=== PATIENT | female | born 2005 | race Caucasian/White ===

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

== ENCOUNTER 2024-02-04 19:43 | Outpatient (CLI) | payer OTHER ==
[2024-02-04] MEDS: LACTATED RINGERS 1,000 ML IV ONE (20:28)
[2024-02-04] MEDS: LOPERAMIDE 2 MG CAP PO STA (20:39)
[2024-02-04 22:17] VITALS: BP 143/88; PULSE 110; RESP 17; TEMP 97
--- NOTE | 2024-02-25 15:46 | P.MSEPDOC ---
Presenting Problems - Arrival Data Date of Arrival on Unit: 02/04/24 Time of Arrival on Unit: 19:43 Mode of Transport: Wheelchair - Complaint OB-Reason for Admission/Chief Complaint: Other Comment: dehydration, diarrhea, nausea Medical History - Information : 2 Para: 0 Term: 0 : 0 Abortions: Spontaneous or Elective: 1 Number of Living Children: 0 - Gestational Age Gestational Age by JOSEPH (wks/days): 30 Weeks and 0 Days Review of Systems - Review of Systems Constitutional: No problems Breast: No problems ENT: No problems Cardiovascular: No problems Respiratory: No problems Gastrointestinal: No problems Genitourinary: No problems Musculoskeletal: No problems Neurological: No problems Skin: No problems Vital Signs - Temperature Temperature: 97.0 F Temperature Source: Temporal Artery Scan - Pulse Right Pulse Rate: 110 Pulse Assessment Method: Pulse Oximetry - Respirations Respiratory Rate: 17 Oxygen Delivery Method: Room Air O2 Sat by Pulse Oximetry: 97 - Blood Pressure Right Arm Blood Pressure: 143/88 Blood Pressure Mean: 106 Blood Pressure Source: Automatic Cuff Medical Screen Scoring - Assessment - Baby A Baseline FHR: 135 Heart Rate - NICHD Category: Category I (Normal) NST: Reactive Physician Notification - Physician Notified Physician Notified Date: 02/04/24 Physician Notified Time: 20:12 Physician: Darlene Rodríguez Order Received: Yes (1 Liter Bolus LR, Imodium 4mg once) Maternal Triage Index - Maternal Triage Index Presenting for scheduled procedure w/no complaint: No - Stat/Priority 1 Stat Priority 1: No - Urgent/Priority 2 Urgent Priority 2: No - Prompt/Priority 3 Prompt Priority 3: No - Non-Urgent/Priority 4 Non-Urgent Priority 4: Yes Criteria Met for Priority 4: Diarrhea, nausea, dehydration Disposition - Disposition OB Disposition: Discharge to home Discharge Date: 02/04/24 Discharge Time: 21:22 I agree with the RN Medical Screening Exam: Yes Physician's MSE Comment: I have neither seen nor examined the patient Case reviewed; plan agreed upon as documented in EMR&OBIX.: Yes Diagnosis: MATERNAL CARE FOR PROBLEM, UNSP, THIRD * DO NOT USE *
== END 2024-02-04 21:22 | disposition home or self-care (01) ==
LOC: FBPOP 19:43
PROVIDERS: ATTEND Obstetrics & Gynecology
DX: O99.283 Endocrine, nutritional and metabolic diseases complicating pregnancy, third trimester (principal); E86.0 Dehydration; Z3A.30 30 weeks gestation of pregnancy
CPT/HCPCS: 59025; 96360; G0463; 36415; 96365; 99213; 99214

== ENCOUNTER 2024-02-16 01:21 | Outpatient (CLI) | payer OTHER ==
[2024-02-16 03:04] VITALS: BP 115/57; PULSE 88; RESP 16; TEMP 97.4
--- NOTE | 2024-03-29 09:16 | P.MSEPDOC ---
Presenting Problems - Arrival Data Date of Arrival on Unit: 02/16/24 Time of Arrival on Unit: 01:21 Mode of Transport: Wheelchair - Complaint OB-Reason for Admission/Chief Complaint: Pain Comment: Patient presents to triage with complaints of sharp ligament pain, with pressure, and back pain. Patient rating pain 7/10, intermittent. Medical History - Information : 2 Para: 0 Term: 0 : 0 Abortions: Spontaneous or Elective: 1 Number of Living Children: 0 - Gestational Age Gestational Age by JOSEPH (wks/days): 31 Weeks and 5 Days Review of Systems - Review of Systems Constitutional: No problems Breast: No problems ENT: No problems Cardiovascular: No problems Respiratory: No problems Gastrointestinal: No problems Genitourinary: No problems Musculoskeletal: No problems Neurological: No problems Skin: No problems Vital Signs - Temperature Temperature: 97.4 F Temperature Source: Temporal Artery Scan - Pulse Pulse Oximetery Pulse Rate: 88 Pulse Assessment Method: Pulse Oximetry - Respirations Respiratory Rate: 16 Oxygen Delivery Method: Room Air O2 Sat by Pulse Oximetry: 96 - Blood Pressure Right Arm Blood Pressure: 115/57 Blood Pressure Mean: 76 Blood Pressure Source: Automatic Cuff Medical Screen Scoring - Uterine Contractions Resting: Soft to palpation - Assessment - Baby A Baseline FHR: 135 Heart Rate - NICHD Category: Category I (Normal) NST: Reactive Physician Notification - Physician Notified Physician Notified Date: 02/16/24 Physician Notified Time: 01:58 Physician: Karishma Pugh New Order Received: Yes (Discharge orders recieved.) - Notification Comment Comment: At this time Dr. Pugh gave orders to discharge patient home with Dr. helms for work and to keep next appointment with Dr. Rodríguez on 02/22/2024 Maternal Triage Index - Maternal Triage Index Presenting for scheduled procedure w/no complaint: No - Stat/Priority 1 Stat Priority 1: No - Urgent/Priority 2 Urgent Priority 2: No - Prompt/Priority 3 Prompt Priority 3: No - Non-Urgent/Priority 4 Non-Urgent Priority 4: Yes Criteria Met for Priority 4: Patient presents to triage with complaints of sharp ligament pain, with pressure, and back pain. Patient rating pain 7/10, intermittent. Dr. Pugh called with report on patient. , 31 01/08. RN reported on complaint of round ligament pain and pressure, back pain. Patient rating pain 7/10 intermittently. Stable vital signs, reactive NST. Once contraction traced during the 20 minutes on monitor which was not felt by the patient. Cervical exam, closed/thick/high. Disposition - Disposition OB Disposition: Discharge to home Discharge Date: 02/16/24 Discharge Time: 02:04 I agree with the RN Medical Screening Exam: Yes Case reviewed; plan agreed upon as documented in EMR&OBIX.: Yes Diagnosis: RELATED CONDITIONS, UNSPECIFIED, THIRD TRIMESTER
== END 2024-02-16 02:04 | disposition home or self-care (01) ==
LOC: FBPOP 01:21
PROVIDERS: ATTEND Obstetrics & Gynecology Obstetrics
DX: O26.893 Other specified pregnancy related conditions, third trimester (principal); M54.9 Dorsalgia, unspecified; Z3A.31 31 weeks gestation of pregnancy
CPT/HCPCS: 59025; G0463; 99213

== ENCOUNTER 2024-02-19 07:59 | Emergency (ER) | payer OTHER ==
[2024-02-19 08:04] VITALS: RESP 18
[2024-02-19] MEDS: CARBAMIDE PEROXIDE 6.5% DROPS 15 ML BTL BOTH EARS STA (08:38)
[2024-02-19 09:49] VITALS: BP 126/76; PULSE 89; TEMP 98.1
--- NOTE | 2024-02-19 09:51 | ED ---
ENT HPI - General Chief complaint: ENT Stated complaint: ear pain Time Seen by Provider: 02/19/24 08:04 Source: patient, RN notes reviewed Mode of arrival: ambulatory Limitations: no limitations - History of Present Illness Initial comments: 18-year-old female presents emergency department complaint of left ear discomfort, plugged feeling. Patient states she has chronic wax issues she states she tried to flush with no relief. Patient offers no complaints of fever chills no other issues. - Related Data Home Medications Medication Instructions Recorded Confirmed Vit No.179/Iron/Folic 1 each PO DAILY 02/04/24 02/16/24 [ Tablet] Allergies Allergy/AdvReac Type Severity Reaction Status Date / Time No Known Allergies Allergy Verified 02/19/24 08:04 Review of Systems ROS Statement: Those systems with pertinent positive or pertinent negative responses have been documented in the HPI. ROS Other: All systems not noted in ROS Statement are negative. Past Medical History Past Medical History: Asthma Additional Past Medical History / Comment(s): Anxiety History of Any Multi-Drug Resistant Organisms: None Reported Past Surgical History: Appendectomy Past Psychological History: ADD/ADHD, Anxiety, Depression Smoking Status: Never smoker Past Alcohol Use History: None Reported Past Drug Use History: None Reported General Exam Limitations: no limitations General appearance: alert, in no apparent distress Head exam: Present: atraumatic, normocephalic, normal inspection Eye exam: Present: normal appearance, PERRL, EOMI. Absent: scleral icterus, conjunctival injection, periorbital swelling ENT exam: Present: normal oropharynx, mucous membranes moist, TM's normal bilaterally, normal external ear exam, other (Cerumen impaction left). Absent: normal exam Neck exam: Present: normal inspection. Absent: tenderness, meningismus, lymphadenopathy Respiratory exam: Present: normal lung sounds bilaterally. Absent: respiratory distress, wheezes, rales, rhonchi, stridor Cardiovascular Exam: Present: regular rate, normal rhythm, normal heart sounds. Absent: systolic murmur, diastolic murmur, rubs, gallop, clicks Course Vital Signs 02/19/24 02/19/24 08:01 09:48 Temperature 98.2 F 98.1 F Pulse Rate 92 89 Respiratory 18 18 Rate Blood Pressure 120/82 126/76 O2 Sat by Pulse 98 99 Oximetry Procedures - Ear Wax Removal Left Ear Cerumenolytic Used: Cerumenex Ear Canal Irrigated by: RN, other (EMELY) Ear Canal Irrigated With: warm saline with H2O2 using syringe/angiocath Ear Canal(s) Curetted: plastic scoops, plastic loops Results: Re-examined: cerumen removed completely TM Visible: TM(s) intact, normal appearance Ear Canal: atraumatic Patient Tolerated Procedure: well, no complications Medical Decision Making - Medical Decision Making Was pt. sent in by a medical professional or institution (, STEFANY, OLERICULTURE PROFESSOR, urgent care, hospital, or senior care...) When possible be specific @ -No Did you speak to anyone other than the patient for history (EMS, parent, family, police, friend...)? What history was obtained from this source @ -No Did you review nursing and triage notes (agree or disagree)? Why? @ -I reviewed and agree with nursing and triage notes Were old charts reviewed (outside hosp., previous admission, EMS record, old EKG, old radiological studies, urgent care reports/EKG's, senior care records)? Report findings @ -No old charts were reviewed Differential Diagnosis (chest pain, altered mental status, abdominal pain women, abdominal pain men, vaginal bleeding, weakness, fever, dyspnea, syncope, headache, dizziness, GI bleed, back pain, seizure, CVA, palpatations, mental health, musculoskeletal)? @ -Otitis media otitis externa cerumen impaction EKG interpreted by me (3pts min.). @ -None X-rays interpreted by me (1pt min.). @ -None done CT interpreted by me (1pt min.). @ -None done U/S interpreted by me (1pt. min.). @ -None done What testing was considered but not performed or refused? (CT, X-rays, U/S, labs)? Why? @ -None What meds were considered but not given or refused? Why? @ -None Did you discuss the management of the patient with other professionals (professionals i.e. STEFANY [employer], OLERICULTURE PROFESSOR, lab, RT, psych nurse, mental health social worker, spring encaser, teacher, general service officer, case management manager)? Give summary @ -No Was smoking cessation discussed for >3mins.? @ -No Was critical care preformed (if so, how long)? @ -No Were there social determinants of health that impacted care today? How? (Homelessness, low income, unemployed, alcoholism, drug addiction, transportation, low edu. Level, literacy, decrease access to med. care, fci, rehab)? @ -No Was there de-escalation of care discussed even if they declined (Discuss DNR or withdrawal of care, Hospice)? DNR status @ -No What co-morbidities impacted this encounter? (DM, HTN, Smoking, COPD, CAD, Cancer, CVA, ARF, Chemo, Hep., AIDS, mental health diagnosis, sleep apnea, morbid obesity)? @ -None Was patient admitted / discharged? Hospital course, mention meds given and route, prescriptions, significant lab abnormalities, going to OR and other pertinent info. @ -Discharge patient had cerumen impaction which was removed using Angiocath in hydroperoxide. Undiagnosed new problem with uncertain prognosis? @ -No Drug Therapy requiring intensive monitoring for toxicity (Heparin, Nitro, Insulin, Cardizem)? @ -No Were any procedures done? @ -No Diagnosis/symptom? @ -Cerumen impaction Acute, or Chronic, or Acute on Chronic? @ -Acute Uncomplicated (without systemic symptoms) or Complicated (systemic symptoms)? @ -Uncomplicated Side effects of treatment? @ -No Exacerbation, Progression, or Severe Exacerbation? @ -No Poses a threat to life or bodily function? How? (Chest pain, [place], [place], pneumonia, PE, COPD, DKA, ARF, appy, cholecystitis, CVA, Diverticulitis, Homicidal, Suicidal, threat to staff... and all critical care pts) @ -No Disposition Clinical Impression: Cerumen impaction Disposition: HOME SELF-CARE Condition: Stable Instructions (If sedation given, give patient instructions): Earache (ED) Additional Instructions: Please return to the Emergency Department if symptoms worsen or any other concerns. Is patient prescribed a controlled substance at d/c from ED?: No Referrals: None,Stated [Primary Care Provider] - 1-2 days Time of Disposition: 09:51
== END 2024-02-19 09:52 | disposition home or self-care (01) ==
LOC: EC 07:59
DX: H61.22 Impacted cerumen, left ear (principal)
CPT/HCPCS: 69210; 99282

== ENCOUNTER 2024-03-13 13:02 | Outpatient (CLI) | payer OTHER ==
[2024-03-13 14:12] VITALS: BP 141/77; PULSE 88; RESP 20; TEMP 98.3
--- NOTE | 2024-03-25 16:11 | P.MSEPDOC ---
Presenting Problems - Arrival Data Date of Arrival on Unit: 03/13/24 Time of Arrival on Unit: 13:08 Mode of Transport: Ambulatory - Complaint OB-Reason for Admission/Chief Complaint: Rule Out PROM Comment: pt arrived c/o questionable ro. pt states she had one gush last night of fluid but dnies any today. underwear dry vaginal area dry. Medical History - Information : 2 Para: 0 Term: 0 : 0 Abortions: Spontaneous or Elective: 1 Number of Living Children: 0 - Gestational Age Gestational Age by JOSEPH (wks/days): 35 Weeks and 3 Days Review of Systems - Review of Systems Constitutional: No problems Breast: No problems ENT: No problems Cardiovascular: No problems Respiratory: No problems Gastrointestinal: No problems Genitourinary: No problems Musculoskeletal: No problems Neurological: No problems Skin: No problems Vital Signs - Temperature Temperature: 98.3 F Temperature Source: Oral - Pulse Right Brachial Pulse Rate: 88 Pulse Assessment Method: Automatic Cuff - Respirations Respiratory Rate: 20 Oxygen Delivery Method: Room Air - Blood Pressure Right Arm Blood Pressure: 141/77 Blood Pressure Mean: 98 Blood Pressure Source: Automatic Cuff Medical Screen Scoring - Cervical Exam Membranes: Intact - Uterine Contractions Intensity: Mild Resting: Soft to palpation - Assessment - Baby A Baseline FHR: 130 Heart Rate - NICHD Category: Category I (Normal) NST: Reactive Physician Notification - Physician Notified Physician Notified Date: 03/13/24 Physician Notified Time: 14:00 Physician: dr brown New Order Received: Yes - Notification Comment Comment: may discharge to home with instructions and have patient keep her scheduled appointment on Monday03/18/2024 Maternal Triage Index - Non-Urgent/Priority 4 Non-Urgent Priority 4: Yes Criteria Met for Priority 4: pt arrived questionable whether her watr broke pt states she had 1 gush yesterday of clear fluid but denies any leaking at this time underwar dy and vaginal area dry Disposition - Disposition OB Disposition: Discharge to home Discharge Date: 03/13/24 Discharge Time: 14:12 I agree with the RN Medical Screening Exam: Yes Physician's MSE Comment: I have neither seen nor examined the patient Case reviewed; plan agreed upon as documented in EMR&OBIX.: Yes Diagnosis: MATERNAL CARE FOR PROBLEM, UNSP, THIRD * DO NOT USE *
== END 2024-03-13 14:12 | disposition home or self-care (01) ==
LOC: FBPOP 13:02
PROVIDERS: ATTEND Obstetrics & Gynecology
DX: O47.03 False labor before 37 completed weeks of gestation, third trimester (principal); Z3A.35 35 weeks gestation of pregnancy
CPT/HCPCS: 59025; G0463; 99213

== ENCOUNTER 2024-04-03 11:59 | Inpatient (IN) | payer OTHER ==
[2024-04-03 12:24] LABS: Appearance,Urine Cloudy (Clear); Bacteria,Urine Rare /hpf; Bilirubin,Urine Negative (Negative); Blood,Urine Negative (Negative); Color,Urine Light Yellow; Glucose,Urine (UA) Negative (Negative); Hyaline Casts,Urine 1 /lpf (0-2); Ketones,Urine Trace (Negative); Leukocyte Esterase,Urine Large (Negative); Mucus,Urine Few /hpf; Nitrite,Urine Negative (Negative); Protein,Urine Trace (Negative); RBC,Urine 3 /hpf (0-5); Specific Gravity,Urine 1.018 (1.001-1.035); Squamous Epithelial Cell,Urine 8 /hpf (0-4); WBC,Urine 8 /hpf (0-5)
[2024-04-03 12:33] LABS: Creatinine,Urine Random 128.6 mg/dL; Protein/Creatinine Ratio,Urine 0.093
[2024-04-03 13:00] LABS: Basophils % (A) 0 %; Eosinophils # (A) 0.1 k/uL (0-0.7); Eosinophils % (A) 1 %; HCT 33.7 % (34.0-46.0); HGB 11.4 gm/dL (11.4-16.0); Lymphocytes # (A) 1.8 k/uL (1.0-4.8); Lymphocytes % (A) 20 %; MCH 28.1 pg (25.0-35.0); MCHC 33.7 g/dL (31.0-37.0); MCV 83.6 fL (80.0-100.0); Mean Platelet Volume 8.9; Monocytes # (A) 0.6 k/uL (0-1.0); Monocytes % (A) 7 %; Neutrophils # (A) 6.4 k/uL (1.3-7.7); Neutrophils % (A) 72 %; Platelet Count 235 k/uL (150-450); RBC 4.04 m/uL (3.80-5.40)
[2024-04-03 13:28] LABS: Uric Acid 3.4 mg/dL (3.7-7.4)
[2024-04-04] MEDS ORDERED: LIDOCAINE 0.5% (PF) 5 MG/ML (50 ML SDV) SQ PRN (05:04)
[2024-04-04] MEDS ORDERED: miSOPROStoL 200 MCG TAB PO PRN (05:04)
[2024-04-04] MEDS ORDERED: CARBOPROST TROMETHAMINE 250 MCG/ML 1 ML AMP IM PRN (05:04)
[2024-04-04] MEDS ORDERED: TERBUTALINE 1 MG/ML VIAL SQ PRN (05:04)
[2024-04-04] MEDS ORDERED: TRANEXAMIC 1,000 MG/100ML-NACL 1,000 MG in EMPTY BAG 1 BAG IV PRN (05:04)
[2024-04-04] MEDS: AMPICILLIN 2,000 MG in SODIUM CHLORIDE 0.9% 100 ML IVPB STA (06:00)
[2024-04-04] MEDS: LACTATED RINGERS 1,000 ML IV SCH (06:00)
[2024-04-04] MEDS: OXYTOCIN 30 UNITS/500 ML NS 30 UNIT in SALINE 1 500ML.BAG IV SCH (06:13)
--- NOTE | 2024-04-04 09:41 | P.HPOB ---
History of Present Illness H&P Date: 04/04/24 Chief Complaint: medical induction of labor Ms. Henderson is a 18 year old at 38 weeks and 4 days with EDC of 04/14/2024 by LMP consistent with 12 week US who presents for medical induction of labor for newly diagnosed gestational hypertension. PIH labs yesterday even ing on 04/03 were within normal limits and urine P:C was 0.09. The has been complicated by maternal mild intermittent asthma which has been well- controlled during . The patient also has anxiety, which has been stable without medications. The estimated weight is in the 81%ile based on a 32 week growth US. work-up: blood type O positive, antibody negative, rubella immune, VDRL non-reactive, HBsAg negative, HIV negative, HCV Ab negative, chlamydia negative, gonorrhea negative, 1 hour GTT wnl, GBS positive. Past Medical History Past Medical History: Asthma Additional Past Medical History / Comment(s): Anxiety History of Any Multi-Drug Resistant Organisms: None Reported Past Surgical History: Appendectomy Past Anesthesia/Blood Transfusion Reactions: No Reported Reaction Past Psychological History: Anxiety Smoking Status: Never smoker Past Alcohol Use History: None Reported Past Drug Use History: None Reported - Past Family History Mother Family Medical History: Hypertension, Myocardial Infarction (NE) Medications and Allergies Home Medications Medication Instructions Recorded Confirmed Type Vit No.179/Iron/Folic 1 each PO DAILY 02/04/24 04/03/24 History [ Tablet] Aspirin 81 mg PO DAILY 03/13/24 04/03/24 History Allergies Allergy/AdvReac Type Severity Reaction Status Date / Time No Known Allergies Allergy Verified 03/13/24 13:19 Exam Vital Signs Temp Pulse Resp BP Pulse Ox 04/03/24 12:05 97.3 F L 97 18 141/98 98 Intake and Output 04/03/24 04/04/24 04/04/24 22:59 06:59 14:59 Other: # Voids 2 2 Focused physical exam is performed. This is a healthy-appearing in no apparent distress. Breathing is non-labored. Abdomen is gravid and non-tender. Cervical exam is 3/80/-1. AROM is undertaken with clear fluid noted. Extremities non-tender and non-edematous. heart tones are Category I and tocometer is graphing contractions every 2-4 minutes. Results Result Diagrams: 04/03/24 12:50 Abnormal Lab Results - Last 24 Hours (Table) 04/03/24 04/03/24 04/03/24 Range/Units 12:03 12:50 12:50 Hct 33.7 L (34.0-46.0) % Uric Acid 3.4 L (3.7-7.4) mg/dL Urine Appearance Cloudy H (Clear) Urine Protein Trace H (Negative) Urine Ketones Trace H (Negative) Ur Leukocyte Esterase Large H (Negative) Urine WBC 8 H (0-5) /hpf Ur Squamous Epith Cells 8 H (0-4) /hpf Urine Bacteria Rare H (None) /hpf Urine Mucus Few H (None) /hpf Assessment and Plan Assessment: 18 year old at 38 weeks and 4 days being medically induced for newly diagnosed gestational HTN Plan: Admit, clear liquid diet, pitocin per protocol, epidural prn, s/p AROM, IV antibiotics for GBS prophylaxis, continuous EFM and tocometer, anticipate vaginal delivery.
[2024-04-04] MEDS: AMPICILLIN 1,000 MG in SODIUM CHLORIDE 0.9% 50 ML IVPB SCH (10:00)
[2024-04-04] MEDS ORDERED: fentaNYL (PF) 50 MCG/ML 5 ML AMP ONE (12:05)
[2024-04-04] MEDS ORDERED: ROPIVACAINE 5 MG/ML 30 ML VIAL ONE (12:05)
[2024-04-04] MEDS ORDERED: SODIUM CHLORIDE 0.9% 250 ML BAG ONE (12:05)
[2024-04-04] MEDS: METHYLERGONOVINE 0.2 MG/ML 1 ML AMP IM PRN (21:08)
[2024-04-04] MEDS: OXYTOCIN 10 UNIT/ML 1 ML VIAL IM PRN (21:11)
[2024-04-04] MEDS: miSOPROStoL 200 MCG TAB RECTAL PRN (21:17)
--- NOTE | 2024-04-04 21:37 | P.PROBDLV ---
Vaginal Delivery Note - . Vaginal Delivery Note: DATE OF SERVICE: 04/04/2024 PROCEDURE: Vacuum Assisted Vaginal Delivery ATTENDING: Dr. Darlene Rodríguez MD ESTIMATED BLOOD LOSS: 1000 mL FINDINGS: VMI, Apgars /. Weight 8 pounds and 1 ounce (3670 grams). Hemorrhage. PROCEDURE: Ms. Henderson is a 18 year old at 38 weeks and 4 days presenting to labor and delivery for medical induction of labor for gestational hypertension. For further details, please review the admitting H&P. Pitocin was titrated per protocol. AROM was undertaken at 0935 revealing clear amniotic fluid. The patient received epidural anesthesia per her request. The patient was completely dilated at 1812. The patient pushed effectively with Category I to II heart tones. During pushing, the heart tracing showed decelerations into the 70s with progressively poorer recoveries in between contractions. Because of this, vacuum delivery was recommended. The patient agreed. The baby's head was confirmed to be in the occiput anterior presentation with 100% effacement and +3 station. The vacuum was placed and the correct placement in front of the posterior fontanelle was confirmed digitally. With the patient's next contraction, the vacuum was inflated and a gentle downward pressure was used to assist with brining the baby's head to a +4 station and the vacuum was removed. The head was delivered over an intact perineum. There was no nuchal cord. Shoulders followed by body were delivered without difficulty at 2103. The baby's mouth and nose were bulb suctioned. The cord was clamped x2 and cut. The was handed to the pediatric team. Placenta was delivered whole with gentle cord traction at 2105. The IV was not flowing properly, so IM Oxytocin was administered to facilitate uterine tone. Bleeding was still brisk with bimanual massage, so IM Methergine was then given. Bleeding was slowing, but the uterus continued to feel atonic and large blood clots continued to be evacuated from the lower uterine segment. 1000mg of rectal cytotec was give. Uterine fundus was found to be firm and below the umbilicus upon fundal massage. Thorough examination of the cervix, vagina, periurethral area, and perineum revealed a right periurethral laceration that was hemostatic. The patient is stable and allowed to begin the bonding process.
[2024-04-04] MEDS ORDERED: HYDROCORTISONE 2.5% RECTAL CREAM 30 GM TUBE RECTAL PRN (21:38)
[2024-04-04] MEDS ORDERED: BENZOCAINE/MENTHOL SPRAY 1 GM/SPRAY AEROSOL TOPICAL PRN (21:38)
[2024-04-04] MEDS ORDERED: diphenhydrAMINE 25 MG CAP PO PRN (21:38)
[2024-04-04] MEDS ORDERED: LANOLIN CREAM 1 GM TUBE TOPICAL PRN (21:38)
[2024-04-04] MEDS ORDERED: ZOLPIDEM 5 MG TAB PO PRN (21:38)
[2024-04-04] MEDS ORDERED: diphenhydrAMINE 50 MG CAP PO PRN (21:38)
[2024-04-04] MEDS ORDERED: diphenhydrAMINE 50 MG/ML 1 ML VIAL IVP PRN ×2 (21:38)
[2024-04-04] MEDS ORDERED: SIMETHICONE 80 MG CHEWABLE PO PRN (21:38)
[2024-04-04] MEDS: ROPIVACAINE 225 MG, fentaNYL (PF). 450 MCG in SODIUM CHLORIDE 0.9% 171 ML EPIDURAL ONE (22:56)
[2024-04-04] MEDS: IBUPROFEN 600 MG TAB PO PRN (23:05)
[2024-04-05] MEDS: ACETAMINOPHEN TAB 325 MG TAB PO PRN (04:13)
[2024-04-05 06:48] LABS: Basophils % (A) 0 %; Eosinophils # (A) 0.2 k/uL (0-0.7); Eosinophils % (A) 1 %; HCT 29.6 % (34.0-46.0); Lymphocytes # (A) 1.4 k/uL (1.0-4.8); Lymphocytes % (A) 11 %; MCH 27.7 pg (25.0-35.0); Mean Platelet Volume 8.8; Monocytes # (A) 0.8 k/uL (0-1.0); Monocytes % (A) 6 %; Neutrophils # (A) 10.3 k/uL (1.3-7.7); Neutrophils % (A) 81 %; Platelet Count 213 k/uL (150-450); RBC 3.52 m/uL (3.80-5.40); RDW 15.1 % (11.5-15.5); WBC 12.7 k/uL (4.0-11.0)
[2024-04-05 07:01] LABS: HGB 9.8 gm/dL (11.4-16.0)
[2024-04-05] MEDS: SENNOSIDES-DOCUSATE SODIUM 1 EACH TAB PO SCH (08:55)
--- NOTE | 2024-04-05 09:07 | P.PNOBGVD ---
Subjective - Subjective Principal diagnosis: s/p vaginal delivery Interval history: The patient is doing well this morning and had no acute events overnight. She has no complaints this morning. She reports minimal lochia, passing flatus, voiding without difficulty, ambulating, and eating/drinking without nausea or vomiting. She is breast feeding her infant without difficulty. She denies chest pain, shortness of breathing, fevers, or chills overnight. She denies pain or swelling in the legs. She denies DURON, visual disturbances, and RUQ pain. Patient reports: Reports appetite normal, Reports voiding normally, Reports pain well controlled, Reports ambulating normally : doing well Objective - Latest Vital Signs Latest vital signs: Vital Signs Temp Pulse Resp BP Pulse Ox 04/05/24 08:00 99.2 F 105 H 14 129/85 04/05/24 04:00 100 18 120/79 97 04/04/24 23:26 97 18 141/85 100 04/04/24 23:11 81 18 144/79 100 04/04/24 22:56 90 18 147/77 100 04/04/24 22:41 84 18 145/72 98 04/04/24 22:26 91 18 160/85 04/04/24 22:11 90 18 155/86 100 04/04/24 21:56 94 18 151/83 100 04/04/24 21:41 90 16 100 04/04/24 21:26 92 18 151/78 100 Intake and Output 04/04/24 04/05/24 04/05/24 22:59 06:59 14:59 Intake Total 900.000 Output Total 1200 190 Balance -300.000 -190 Intake: Intake, IV Titration 500.000 Amount Oxytocin 30 Units/500 ml 500.000 Ns 30 unit In Saline 1 500ml.bag @ Per Protocol IV .Q0M [facility] Rx#:[id number] Oral 400 Output: Urine 200 Estimated Blood Loss 1000 Output, Quantitative 190 Blood Loss Other: # Voids 3 - Exam Extremities: Present: normal Abdomen: Present: normal appearance, soft Uterus: Present: normal, firm - Labs Labs: Abnormal Lab Results - Last 24 Hours (Table) 04/05/24 Range/Units 06:35 WBC 12.7 H (4.0-11.0) k/uL RBC 3.52 L (3.80-5.40) m/uL Hgb 9.8 L D (11.4-16.0) gm/dL Hct 29.6 L (34.0-46.0) % Neutrophils # 10.3 H (1.3-7.7) k/uL Assessment and Plan Assessment: 18 year old now PPD#1 s/p vacuum assisted vaginal delivery after medical induction of labor in 38th week for gestational hypertension Plan: 1. . Patient meeting all milestones appropriately. 2. Gestational HTN. Pt had 1 severe range BP immediately after delivery and other BPs overnight have been mild range 140s/70s-80s. Pt asymptomatic. 3. Viable male . s/p circumcision, doing well. Dispo: Anticipate discharge home tomorrow on POD#2, continue to monitor BPs and assess for need for antihypertensives.
[2024-04-06 08:21] VITALS: BP 142/78; PULSE 75; RESP 16; TEMP 98.7
--- NOTE | 2024-04-06 08:33 | P.DS ---
Providers Date of admission: 04/03/24 14:04 Expected date of discharge: 04/06/24 Attending physician: Darlene Rodríguez MD Primary care physician: Stated None - Discharge Diagnosis(es) (1) Normal spontaneous vaginal delivery Current Visit: Yes Status: Acute Hospital Course: Patient is a 18-year-old 2 para 0-0-1-0 admitted at 38-4/7 weeks by good dating parameters. She is admitted for induction of labor secondary to a new diagnosis of gestational hypertension. She did have some complications during her with mild intermittent asthmatic symptoms which had been well- controlled prior to . On labor and delivery, all signs are reassuring with a category 1 heart rate tracing. She had Pitocin augmentation started followed by artificial rupture of membranes for clear fluid. She had an epidural catheter placed for analgesia and ultimately progressed to complete and then began pushing at which time she developed some category 2 heart tones on occasion with little return to baseline. The decision was made to apply a vacuum ultimately. A mighty VAC vacuum was applied and the delivered which was a viable 8 pound 1 ounce baby boy with Apgars of 7 at 1 minute and 8 at 5 minutes. She did have an immediate hemorrhage requiring both Methergine and rectal Cytotec which abated all bleeding and caused good uterine tone. Her course was unremarkable with vital signs remaining stable and her temperature was afebrile throughout. She was deemed stable for discharge on day #2 and was discharged home to follow-up in the office in 6 weeks time routinely. Discharge instructions included calling for any significantly increased bleeding or foul-smelling lochia, significantly increased fever or abdominal pain, perineal complaints, breast complaints, or anything else that concerned her. She was additionally instructed to have nothing in the vagina for at least 6 weeks time to include intercourse. She understood her instructions and agrees to follow-up as noted above. Discharge medications included continued vitamins as she has opted to breast- feed. She was otherwise to use [id number] analgesic pain medications as needed. Maternal blood type is O+ and rubella status is immune. Procedures: #1. Pitocin induction #2. Artificial rupture of membranes #3. Epidural analgesia #4. Outlet vacuum extraction #5. Methergine and rectal Cytotec for hemorrhage Patient Condition at Discharge: Stable Plan - Discharge Summary New Discharge Prescriptions: No Action Vit No.179/Iron/Folic [ Tablet] 1 each PO DAILY Aspirin 81 mg PO DAILY Discharge Medication List Vit No.179/Iron/Folic [ Tablet] 1 each PO DAILY 02/04/24 [History] Aspirin 81 mg PO DAILY 03/13/24 [History] Follow up Appointment(s)/Referral(s): Darlene Rodríguez MD [STAFF PHYSICIAN] - 6 Weeks Discharge Disposition: HOME SELF-CARE
== END 2024-04-06 12:15 | disposition home or self-care (01) | DRG 560 ==
LOC: FBPOP 11:59 → 4FBP 14:04
PROVIDERS: ADMIT Obstetrics & Gynecology; ATTEND Obstetrics & Gynecology
PROC: 3E033VJ Introduction of Other Hormone into Peripheral Vein, Percutaneous Approach (ICD-10-PCS; principal; 2024-04-04)
PROC: 10D07Z6 Extraction of Products of Conception, Vacuum, Via Natural or Artificial Opening (ICD-10-PCS; principal; 2024-04-04)
PROC: 10907ZC Drainage of Amniotic Fluid, Therapeutic from Products of Conception, Via Natural or Artificial Opening (ICD-10-PCS; principal; 2024-04-04)
DX: O13.4 Gestational [pregnancy-induced] hypertension without significant proteinuria, complicating childbirth (principal); O76 Abnormality in fetal heart rate and rhythm complicating labor and delivery; O71.82 Other specified trauma to perineum and vulva; O72.1 Other immediate postpartum hemorrhage; O99.52 Diseases of the respiratory system complicating childbirth; J45.20 Mild intermittent asthma, uncomplicated; O99.344 Other mental disorders complicating childbirth; F41.9 Anxiety disorder, unspecified; O99.824 Streptococcus B carrier state complicating childbirth; Z28.310 Unvaccinated for COVID-19; Z79.82 Long term (current) use of aspirin; Z3A.38 38 weeks gestation of pregnancy; Z37.0 Single live birth
CPT/HCPCS: 81001; 82570; 84156; 84450; 84460; 84550; 85025; 86850; 86900; 86901